=== PATIENT | male | born 1995 | race Two or more races ===

== ENCOUNTER 2018-09-15 20:13 | Emergency (ER) | payer OTHER ==
[2018-09-15 20:20] VITALS: BP 131/77; PULSE 83; TEMP 98.7; BMI 22.8
[2018-09-15] MEDS ORDERED: IBUPROFEN 400 MG TABLET (FP) PO ONE ×2 (22:13→22:17)
--- NOTE | 2018-09-15 22:15 | PDOC ---
History of Present Illness - General Chief Complaint: Laceration Stated Complaint: LEFT THUMB LACERATION Time Seen by Provider: 09/15/18 21:35 History Source: Patient Exam Limitations: Clinical Condition - History of Present Illness Initial Comments: 09/15/18 22:36 Patient with no sig PMhx present with complains of laceration to left thumb with a glass at work while trying to clean the glass.Patient report last tetanus vaccine 2years ago. Denies numbness, tingling sensation or weakness to thumb. Patient denies any other symptoms Timing/Duration: 1-3 hours Past History - Past Medical History Allergies/Adverse Reactions: Allergies Allergy/AdvReac Type Severity Reaction Status Date / Time No Known Drug Allergies Allergy Verified 09/15/18 20:17 Home Medications: Ambulatory Orders Ibuprofen 800 mg PO Q8H PRN #20 tablet 09/15/18 Sulfamethoxazole/Trimethoprim [Bactrim Ds -] 1 tab PO BID #14 tablet 09/15/18 COPD: No Other medical history: Pt denies - Suicide/Smoking/Psychosocial Hx Smoking History: Never smoked Have you smoked in the past 12 months: No If you are a former smoker, when did you quit?: "HOOKAH EVERY OTHER DAY" Information on smoking cessation initiated: No 'Breaking Loose' booklet given: 05/12/16 Hx Alcohol Use: No Drug/Substance Use Hx: No Substance Use Type: None Hx Substance Use Treatment: No Review of Systems - Review of Systems Able to Perform ROS?: Yes Is the patient limited Sinhala proficient: No Constitutional: No: Weakness HEENTM: No: Symptoms Reported Respiratory: No: Symptoms reported Cardiac (ROS): No: Symptoms Reported ABD/GI: No: Symptoms Reported Musculoskeletal: Yes: Muscle Pain (left thumb over laceration area), Other ( laceration to plantar aspect of left distal thumb). No: Muscle Weakness Integumentary: Yes: Other (laceration to left thumb with bleeding) Neurological: No: Numbness, Paresthesia, Tingling *Physical Exam - Vital Signs Last Vital Signs Temp Pulse Resp BP Pulse Ox 98.7 F 83 18 131/77 99 09/15/18 20:18 09/15/18 20:18 09/15/18 20:18 09/15/18 20:18 09/15/18 20:18 - Physical Exam General Appearance: Yes: Nourished, Appropriately Dressed. No: Apparent Distress Neck: positive: Supple Respiratory/Chest: negative: Respiratory Distress, Accessory Muscle Use Cardiovascular: positive: Regular Rhythm, Regular Rate Extremity: positive: Normal Capillary Refill, Normal Range of Motion (of left thumb), Other (laceration to left thumb on plantar aspect of distal phalange with bleeding) Integumentary: positive: Normal Color, Other (4cm vertical linear laceration to plantar aspect of distal phalange of left thumb without nail damage with moderate bleeding. no foreign materal found in laceration wound). negative: Cyanotic Neurologic: positive: Fully Oriented, Alert, Motor Strength 5/5 (left thumb) Moderate Sedation - Procedure Monitoring Vital Signs: Procedure Monitoring Vital Signs Temperature 98.7 F 09/15/18 20:18 Pulse Rate 83 09/15/18 20:18 Respiratory Rate 18 09/15/18 20:18 Blood Pressure 131/77 09/15/18 20:18 O2 Sat by Pulse Oximetry (%) 99 09/15/18 20:18 Procedures - Laceration/Wound Repair Left Anterior Proximal Plantar Finger 1st digit Wound Length: 2.6 to 5.0 cm (4cm) Wound Explored: clean, no foreign body present Wound's Depth, Shape: superficial, linear Irrigated w/ Saline: Yes Betadine Prep: Yes Anesthesia: 1% Lidocaine Amount of Anesthetic (ccs): 2 Wound Repaired With: Sutures Suture Size/Type: 4:0, nylon Number of Sutures: 7 Layer Closure: No Sterile Dressing Applied: Yes Splint Applied: No Sling Applied: No Progress: 09/15/18 22:46 4cm vertical superficial linear laceration to plantar aspect of left thumb with moderate bleeding. wound irrigated with normal saline. wound cleaned with betadine and closed with 7 4"O nylon in simple interrupted . bacitracin applied to wound. Rx fro Bactrim x 7 days for infection prophylaxis and motrin as needed for pain. Patient to follow-up in 1 week for suture removal. Medical Decision Making - Medical Decision Making 09/15/18 22:41 Patient with no sig PMhx present with complains of laceration to left thumb with a glass at work while trying to clean the glass.Patient report last tetanus vaccine 2years ago. Denies numbness, tingling sensation or weakness to thumb. Exam significant for 4cm vertical superficial linear laceration to plantar aspect of left thumb with moderate bleeding. wound irrigated with normal saline. wound cleaned and closed with 7 4"O nylon . bacitracin applied to wound. Rx fro Bactrim x 7 days for infection prophylaxis and motrin as needed for pain. Patient up-to-date on tetanus vaccine. Patient to follow-up in 1 week for suture removal. Educated on home wound care *DC/Admit/Observation/Transfer Diagnosis at time of Disposition: Laceration of left thumb without damage to nail Qualifiers: Encounter type: initial encounter Foreign body presence: without foreign body Qualified Code(s): S61.012A - Laceration without foreign body of left thumb without damage to nail, initial encounter - Discharge Dispostion Disposition: HOME Condition at time of disposition: Stable Decision to Admit order: No - Prescriptions Prescriptions: Ibuprofen 800 mg PO Q8H PRN #20 tablet PRN Reason: pain Sulfamethoxazole/Trimethoprim [Bactrim Ds -] 1 tab PO BID #14 tablet - Referrals - Patient Instructions Printed Discharge Instructions: DI for Laceration Repair Additional Instructions: Take medication as prescribed prescribed. keep wound dry for the next 48hrs. follow-up in 1 week for suture removal - Post Discharge Activity
== END 2018-09-15 22:33 | disposition home or self-care (01) ==
LOC: JERFT 20:13
PROC: 0HQGXZZ Repair Left Hand Skin, External Approach (ICD-10-PCS; principal; 2018-09-15)
DX: S61.012A Laceration without foreign body of left thumb without damage to nail, initial encounter (principal); W25.XXXA Contact with sharp glass, initial encounter; Y92.59 Other trade areas as the place of occurrence of the external cause; Y99.0 Civilian activity done for income or pay
CPT/HCPCS: 99282-25

== ENCOUNTER 2018-11-26 04:18 | Emergency (ER) | payer OTHER ==
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
[2018-11-26 04:32] VITALS: BP 128/67; PULSE 102; TEMP 97.7; BMI 23.6
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
[2018-11-26] MEDS ORDERED: ACETAMINOPHEN 325 MG TABLET (FP) PO ONE (04:46)
[2018-11-26] MEDS ORDERED: ACETAMINOPHEN 325 MG TABLET (FP) ONE (05:16)
== END 2018-11-26 06:56 | disposition home or self-care (01) ==
LOC: JER 04:18
DX: F10.120 Alcohol abuse with intoxication, uncomplicated (principal); S01.511A Laceration without foreign body of lip, initial encounter; S02.5XXA Fracture of tooth (traumatic), initial encounter for closed fracture; V48.4XXA Person boarding or alighting a car injured in noncollision transport accident, initial encounter; Y92.414 Local residential or business street as the place of occurrence of the external cause; Y93.89 Activity, other specified; Y99.8 Other external cause status; G93.89 Other specified disorders of brain
CPT/HCPCS: 70450-TC; 70486-TC; 72125-TC; 99282-25